=== PATIENT | female | born 1930 | race African-American/Black ===

== ENCOUNTER 2017-01-26 09:56 | Day surgery (SDC) | payer MEDICARE, MEDICAID ==
[~2017-01-26] VITALS: Ht 165.1 cm; Wt 67.1 kg
[~2017-01-26 09:56] MED LIST: AMIT75TA2 PO; CALC-700 PO; CELE200C PO; FERR-63 PO; FISH1CAP34 PO; FOLI-43 PO; GABA-529 PO; IBUP-2028 PO; METO-385 PO; OMEP20TA2 PO; SIMV40TA5 PO; TRAM50TA3 PO
[2017-01-26] MEDS ORDERED: LACTATED RINGERS 1,000 ML IV SCH (11:30)
[2017-01-26] MEDS ORDERED: CEFAZOLIN SODIUM 1000MG/VIAL ONE (11:55)
[2017-01-26] MEDS ORDERED: LIDOCAINE HCL 1% 20ML VIAL (Pyxis) INJ ONE (11:55)
[2017-01-26] MEDS ORDERED: PROPOFOL 200MG/20ML VIAL IV ONE (11:55)
[2017-01-26] MEDS ORDERED: ONDANSETRON HCL 4MG/2ML VIAL ONE (12:07)
[2017-01-26] MEDS ORDERED: GENTAMICIN SULF 40MG/ML 2ML VIAL ONE (12:10)
[2017-01-26] MEDS ORDERED: MORPHINE SULFATE 2 MG/ML CPJ (NOT FOR IM USE) IV PRN (12:30)
[2017-01-26] MEDS ORDERED: SODIUM CHLORIDE 0.9% 1,000 ML IV SCH (12:30)
[2017-01-26] MEDS ORDERED: ONDANSETRON HCL 4MG/2ML VIAL IV PRN (12:30)
== END 2017-01-26 14:15 | disposition home or self-care (01) ==
LOC: OR 09:56
PROVIDERS: ATTEND Urology
DX: N13.1 Hydronephrosis with ureteral stricture, not elsewhere classified (principal); K21.9 Gastro-esophageal reflux disease without esophagitis; I10 Essential (primary) hypertension; D64.9 Anemia, unspecified; E78.5 Hyperlipidemia, unspecified; I49.9 Cardiac arrhythmia, unspecified
CPT/HCPCS: 52332; 74000; 76000; 88300; C2617; J0690; J1580; J2405; J3490; J7120; J2704

== ENCOUNTER 2017-08-17 06:16 | Day surgery (SDC) | payer MEDICARE, MEDICAID ==
[~2017-08-17] VITALS: Ht 165.1 cm; Wt 66.7 kg
[2017-08-17] MEDS ORDERED: LACTATED RINGERS 1,000 ML IV SCH (06:30)
[2017-08-17] MEDS ORDERED: DEXAMETHASONE 4MG/ML 1ML VIAL ONE (07:34)
[2017-08-17] MEDS ORDERED: LIDOCAINE HCL/PF 1% 10 MG/ML 5ML VIAL ONE (07:34)
[2017-08-17] MEDS ORDERED: PROPOFOL 200MG/20ML VIAL IV ONE (07:34)
[2017-08-17] MEDS ORDERED: EPHEDRINE SULFATE 50MG/ML VIAL ONE (07:34)
[2017-08-17] MEDS ORDERED: ONDANSETRON HCL 4MG/2ML VIAL ONE (07:35)
[2017-08-17] MEDS ORDERED: SODIUM CHLORIDE 0.9% 10ML VIAL ONE ×3 (07:36→08:06)
[2017-08-17] MEDS ORDERED: CEFAZOLIN SODIUM 1000MG/VIAL ONE (07:54)
[2017-08-17] MEDS ORDERED: HYDRALAZINE 20MG/ML VIAL ONE (08:06)
[2017-08-17] MEDS ORDERED: DEXT 5%/0.45% NACL KCL 20MEQ/L 1,000 ML IV SCH (08:30)
== END 2017-08-17 10:50 | disposition home or self-care (01) ==
LOC: OR 06:16
PROVIDERS: ATTEND Urology
DX: N13.30 Unspecified hydronephrosis (principal); M17.9 Osteoarthritis of knee, unspecified; K21.9 Gastro-esophageal reflux disease without esophagitis; M19.049 Primary osteoarthritis, unspecified hand; I11.0 Hypertensive heart disease with heart failure; I50.9 Heart failure, unspecified; Z91.041 Radiographic dye allergy status; Z90.710 Acquired absence of both cervix and uterus
CPT/HCPCS: 52332; 74018; 88300; A4216; C2617; J0360; J0690; J1100; J2405; J3490; J7120; J2704

== ENCOUNTER 2018-11-28 15:57 | Inpatient (IN) | payer MEDICARE, MEDICAID ==
[~2018-11-28] VITALS: Ht 165.1 cm; Wt 62.6 kg
[2018-11-28 18:41] LABS: BASOPHILS % 0.7 % (0.0-2.0); EOSINOPHILS % 9.4 % (0.0-5.0); HEMATOCRIT. 29.7 % (36.0-48.0); HEMOGLOBIN. 9.8 g/dL (12.0-16.0); LYMPHOCYTES % 21.2 % (20.0-50.0); MEAN CORPUSCULAR HEMOGLOBIN 23.2 pg (28.0-32.0); MEAN CORPUSCULAR VOLUME 70.2 fL (81.0-99.0); MEAN PLATELET VOLUME 10.3 fl (7.4-10.4); NEUTROPHILS % 62.7 % (40.0-76.0); PLATELET 213 x1000/uL (130-400); RED BLOOD CELL COUNT 4.24 mill/uL (4.2-5.4); RED CELL DISTRIBUTION WIDTH 16.4 % (11.6-14.6)
[2018-11-28 18:45] LABS: CHLORIDE 109 mEq/L (98-107)
[2018-11-28] MEDS ORDERED: ACETAMINOPHEN 325MG TABLET PO ONE (19:15)
[2018-11-28 19:41] LABS: CLARITY URINE CLEAR (CLEAR); COLOR URINE YELLOW (YELLOW); KETONES URINE NEGATIVE (NEGATIVE); LEUKOCYTE ESTERASE URINE 3+ (NEGATIVE); NITRITE URINE POSITIVE (NEGATIVE); OCCULT BLOOD URINE 1+ (NEGATIVE); PH URINE 6.5 (4.5-8.0); PROTEIN URINE NEGATIVE (NEGATIVE); UROBILINOGEN URINE 0.2 E.U./dL (0.2-1.0)
[2018-11-28] MEDS ORDERED: SODIUM CHLORIDE 0.9% 1,000 ML IV ONE (19:50)
[2018-11-28] MEDS ORDERED: CEFTRIAXONE 1 G PREMIX 50 ML IV ONE (20:45)
[2018-11-29] MEDS ORDERED: IBUPROFEN 600MG TABLET PO PRN (07:15)
[2018-11-29] MEDS ORDERED: NON FORMULARY PATIENT HOME MED XX SCH (07:15)
[2018-11-29] MEDS: CEFTRIAXONE 1 G PREMIX 50 ML IV SCH (08:01)
[2018-11-29] MEDS: CYANOCOBALAMIN 1000MCG TABLET PO SCH (08:02)
[2018-11-29] MEDS: OMEPRAZOLE 20MG CAPSULE EXTENDED RELEASE PO SCH (08:02)
[2018-11-29 08:20] VITALS: BP 131/56
[2018-11-29] MEDS: METOPROLOL TARTRATE 100MG TABLET PO SCH ×2 (08:29→20:28)
[2018-11-29 12:12] VITALS: BP 158/66
[2018-11-29 15:51] VITALS: BP 154/62
[2018-11-29 20:00] VITALS: BP 149/58
[2018-11-29 20:10] LABS: T4 FREE 1.01 ng/dL (0.76-1.46)
[2018-11-29] MEDS: ATORVASTATIN CALCIUM 10MG TABLET PO SCH (20:27)
[2018-11-29] MEDS: AMITRIPTYLINE 25MG TABLET PO SCH (20:28)
[2018-11-29] MEDS ORDERED: AMITRIPTYLINE 50MG TABLET PO SCH (21:00)
[2018-11-30] VITALS: BP 152/71
[2018-11-30 04:00] VITALS: BP 162/58
[2018-11-30] MEDS: OMEPRAZOLE 20MG CAPSULE EXTENDED RELEASE PO SCH (06:22)
[2018-11-30 07:56] VITALS: BP 158/66
[2018-11-30] MEDS: CYANOCOBALAMIN 1000MCG TABLET PO SCH (08:32)
[2018-11-30] MEDS: CEFTRIAXONE 1 G PREMIX 50 ML IV SCH (08:32)
[2018-11-30] MEDS: METOPROLOL TARTRATE 100MG TABLET PO SCH ×2 (08:34→21:37)
[2018-11-30] MEDS: LEVOTHYROXINE SODIUM 50MCG TABLET PO SCH (10:28)
[2018-11-30] MEDS ORDERED: LEVOFLOXACIN 250MG TABLET PO SCH (11:00)
[2018-11-30 12:00] VITALS: BP 153/69
[2018-11-30 16:00] VITALS: BP 153/70
[2018-11-30 20:00] VITALS: BP 121/61
[2018-11-30] MEDS: AMITRIPTYLINE 25MG TABLET PO SCH (21:31)
[2018-11-30] MEDS: ATORVASTATIN CALCIUM 10MG TABLET PO SCH (21:31)
[2018-12-01] VITALS: BP 152/74
[2018-12-01 04:00] VITALS: BP 136/51
[2018-12-01 06:18] LABS: BASOPHILS % 0.4 % (0.0-2.0); HEMATOCRIT. 29.9 % (36.0-48.0); HEMOGLOBIN. 9.7 g/dL (12.0-16.0); LYMPHOCYTES % 21.7 % (20.0-50.0); MEAN CORPUSCULAR HEMOGLOBIN 22.9 pg (28.0-32.0); MEAN PLATELET VOLUME 9.7 fl (7.4-10.4); MONOCYTES % 7.1 % (2.0-8.0); NEUTROPHILS % 63.8 % (40.0-76.0); PLATELET 214 x1000/uL (130-400); RED BLOOD CELL COUNT 4.21 mill/uL (4.2-5.4)
[2018-12-01] MEDS: LEVOTHYROXINE SODIUM 50MCG TABLET PO SCH (06:32)
[2018-12-01] MEDS: OMEPRAZOLE 20MG CAPSULE EXTENDED RELEASE PO SCH (06:32)
[2018-12-01 06:47] LABS: CHLORIDE 110 mEq/L (98-107)
[2018-12-01] MEDS: METOPROLOL TARTRATE 100MG TABLET PO SCH (08:03)
[2018-12-01] MEDS: CEFTRIAXONE 1 G PREMIX 50 ML IV SCH (08:04)
[2018-12-01] MEDS: CYANOCOBALAMIN 1000MCG TABLET PO SCH (08:04)
[2018-12-01 08:17] VITALS: BP 147/67
[2018-12-01 09:34] VITALS: BP 139/56
[2018-12-01 12:00] VITALS: BP 128/52
[2018-12-01] MEDS ORDERED: HYDRALAZINE HCL 50MG TABLET PO SCH (14:00)
[2018-12-01] MEDS ORDERED: ATORVASTATIN CALCIUM 40MG TABLET PO SCH (21:00)
== END 2018-12-01 15:20 | disposition home health service (06) | DRG 690 ==
LOC: ER 18:28 → ENRESERV 11-29 03:51 → 6WST 11-29 05:29
PROVIDERS: ADMIT Internal Medicine; ATTEND Internal Medicine
DX: N39.0 Urinary tract infection, site not specified (principal); N20.0 Calculus of kidney; D64.9 Anemia, unspecified; E03.9 Hypothyroidism, unspecified; I12.9 Hypertensive chronic kidney disease with stage 1 through stage 4 chronic kidney disease, or unspecified chronic kidney disease; M50.30 Other cervical disc degeneration, unspecified cervical region; Z87.442 Personal history of urinary calculi; N18.9 Chronic kidney disease, unspecified; M17.10 Unilateral primary osteoarthritis, unspecified knee; G89.29 Other chronic pain; M54.5 Low back pain; Z87.440 Personal history of urinary (tract) infections; Z79.899 Other long term (current) drug therapy; Z91.041 Radiographic dye allergy status
CPT/HCPCS: 36415; 71101; 74018; 76770; 80048; 84439; 84443; 93923; 93970; 97162; 97535; 99285; J0696; J7030; J7040; J7050

== ENCOUNTER → 2018-12-19 | Outpatient (CLI) | payer MEDICARE, MEDICAID | END | disposition home or self-care (01) | LOC: US 08:28 | PROVIDERS: ATTEND Urology | DX: N20.0 Calculus of kidney (principal); N13.30 Unspecified hydronephrosis; K80.20 Calculus of gallbladder without cholecystitis without obstruction | CPT/HCPCS: 74018; 76700; 76856 ==

== ENCOUNTER 2019-01-29 06:06 | Day surgery (SDC) | payer MEDICARE, MEDICAID ==
[~2019-01-29] VITALS: Ht 163.8 cm; Wt 61.0 kg
[2019-01-29] MEDS ORDERED: LACTATED RINGERS 1,000 ML IV SCH (06:30)
[2019-01-29] MEDS ORDERED: IOPAMIDOL 20 ML VIAL IT ONE (07:08)
[2019-01-29] MEDS ORDERED: FENTANYL CITRATE/PF 50MCG/ML 2ML VIAL ONE (07:24)
[2019-01-29] MEDS ORDERED: MIDAZOLAM HCL 2 MG/2 ML VIAL ONE (07:24)
[2019-01-29] MEDS ORDERED: PROPOFOL 200MG/20ML VIAL IV ONE (07:24)
[2019-01-29] MEDS ORDERED: SODIUM CHLORIDE 0.9% 10ML VIAL ONE (07:47)
[2019-01-29] MEDS ORDERED: DEXAMETHASONE 4MG/ML 1ML VIAL ONE (07:47)
[2019-01-29] MEDS ORDERED: ONDANSETRON HCL 4MG/2ML INJ ONE (07:47)
[2019-01-29] MEDS ORDERED: GENTAMICIN SULF 40MG/ML 2ML VIAL ONE (07:47)
[2019-01-29] MEDS ORDERED: DEXT 5%/0.45% NACL KCL 20MEQ/L 1,000 ML IV SCH (07:52)
[2019-01-29] MEDS ORDERED: HYDROCODONE/ACETAMINOPHEN 5/325MG TABLET PO PRN (08:00)
[2019-01-29] MEDS ORDERED: NALOXONE HCL 0.4 MG/ML 1ML VIAL ONE (08:06)
[2019-01-29] MEDS ORDERED: ONDANSETRON HCL 4MG/2ML INJ IV PRN (08:15)
[2019-01-29] MEDS ORDERED: HYDROMORPHONE HCL/PF 2MG/ML CPJ IV PRN (08:15)
[2019-01-29] MEDS ORDERED: MEPERIDINE HCL/PF 25MG/ML CPJ IV PRN (08:15)
[2019-01-29] MEDS ORDERED: LABETALOL 5MG/ML SYR 20 MG/4 ML SYRINGE IV PRN (08:15)
[2019-01-29] MEDS ORDERED: METO100T16 PO (08:17)
[2019-01-29] MEDS ORDERED: DOCU250C19 PO (08:19)
[2019-01-29] MEDS ORDERED: ALBU6.7H9 IH (08:19)
== END 2019-01-29 11:05 | disposition home or self-care (01) ==
LOC: OR 06:06
PROVIDERS: ATTEND Urology
DX: N13.30 Unspecified hydronephrosis (principal); I21.9 Acute myocardial infarction, unspecified; Z88.8 Allergy status to other drugs, medicaments and biological substances; Z91.041 Radiographic dye allergy status; Z79.899 Other long term (current) drug therapy
CPT/HCPCS: 52332; 74430; 88300; C1769; C2617; J1100; J1580; J2250; J2310; J2405; J2704; J3010; 88305; Q9966

== ENCOUNTER 2019-07-30 06:23 | Day surgery (SDC) | payer MEDICARE, MEDICAID ==
[~2019-07-30] VITALS: Ht 162.6 cm; Wt 57.2 kg
[~2019-07-30 06:23] MED LIST changes: +ALBU6.7H9 IH; +DOCU250C19 PO; -METO-385 PO; +METO100T16 PO; -SIMV40TA5 PO
[2019-07-30] MEDS ORDERED: LACTATED RINGERS 1,000 ML IV SCH (06:55)
[2019-07-30] MEDS ORDERED: SODIUM CHLORIDE 0.9% 10ML VIAL ONE ×5 (07:15→08:22)
[2019-07-30] MEDS ORDERED: EPHEDRINE SULFATE 50MG/ML VIAL ONE (07:15)
[2019-07-30] MEDS ORDERED: PHENYLEPHRINE HCL 10 MG/ML 1ML (IV VIAL) IV ONE (07:16)
[2019-07-30] MEDS ORDERED: IOPAMIDOL 20 ML VIAL IT ONE (07:27)
[2019-07-30] MEDS ORDERED: MIDAZOLAM HCL 2 MG/2 ML VIAL ONE (07:30)
[2019-07-30] MEDS ORDERED: DEXAMETHASONE 4MG/ML 1ML VIAL ONE (07:30)
[2019-07-30] MEDS ORDERED: ONDANSETRON HCL 4MG/2ML INJ ONE (07:30)
[2019-07-30] MEDS ORDERED: FENTANYL CITRATE/PF 50MCG/ML 2ML VIAL ONE (07:30)
[2019-07-30] MEDS ORDERED: ROCURONIUM BROMIDE 10MG/ML VIAL 5ML IV ONE (07:31)
[2019-07-30] MEDS ORDERED: GLYCOPYRROLATE 0.2 MG/ML 2ML VIAL ONE (07:34)
[2019-07-30] MEDS ORDERED: CEFAZOLIN SODIUM 1000MG/VIAL ONE ×2 (07:43→07:44)
[2019-07-30] MEDS ORDERED: FLUMAZENIL 0.1 MG/ML 5ML VIAL IV ONE (08:12)
[2019-07-30] MEDS ORDERED: HYDRALAZINE 20MG/ML VIAL ONE (08:22)
== END 2019-07-30 10:50 | disposition home or self-care (01) ==
LOC: OR 06:23
PROVIDERS: ATTEND Urology
DX: N13.30 Unspecified hydronephrosis (principal); K21.9 Gastro-esophageal reflux disease without esophagitis; I11.0 Hypertensive heart disease with heart failure; I50.9 Heart failure, unspecified; E03.9 Hypothyroidism, unspecified; M17.9 Osteoarthritis of knee, unspecified; E78.00 Pure hypercholesterolemia, unspecified; D64.9 Anemia, unspecified; Z90.710 Acquired absence of both cervix and uterus; Z98.890 Other specified postprocedural states; Z79.899 Other long term (current) drug therapy; Z88.8 Allergy status to other drugs, medicaments and biological substances; Z91.041 Radiographic dye allergy status
CPT/HCPCS: 52332; 74018; 88300; C1769; C2617; J0360; J0690; J1100; J2250; J2370; J2405; J3010; J3490; Q9966

== ENCOUNTER → 2020-01-20 | Outpatient (CLI) | payer MEDICARE, MEDICAID ==
[~2020-01-20] MED LIST changes: -FOLI-43 PO; -GABA-529 PO; +LOVA40TA73 PO
== END | disposition home or self-care (01) ==
LOC: LAB 11:15
PROVIDERS: ATTEND Urology
DX: Z01.818 Encounter for other preprocedural examination (principal); Z11.59 Encounter for screening for other viral diseases
CPT/HCPCS: C9803; U0003

== ENCOUNTER → 2020-01-23 | Day surgery (SDC) | payer MEDICARE, MEDICAID ==
[~2020-01-23] VITALS: Ht 165.1 cm; Wt 54.4 kg
[~2020-01-23] MED LIST changes: -CALC-700 PO; +CEFAZOLIN SODIUM 1000MG/VIAL ONE; -CELE200C PO; +DEXAMETHASONE 4MG/ML 1ML VIAL ONE; +DEXT 5%/0.45% NACL KCL 20MEQ/L 1,000 ML IV SCH; +EPHEDRINE SULFATE 50MG/ML VIAL ONE; +ETOMIDATE 2MG/ML 10ML VIAL IV ONE; +FENTANYL CITRATE/PF 50MCG/ML 2ML VIAL ONE; -FISH1CAP34 PO; +GLYCOPYRROLATE 0.2 MG/ML 2ML VIAL ONE; +HYDRALAZINE 20MG/ML VIAL IV SCH; +HYDROMORPHONE HCL/PF 2MG/ML CPJ IV PRN; +LACTATED RINGERS 1,000 ML IV SCH; +LIDOCAINE HCL 2% JELLY 30ML ONE; +LIDOCAINE HCL/PF 1% 10 MG/ML 5ML VIAL ONE; +ONDANSETRON HCL 4MG/2ML INJ ONE; +PHENYLEPHRINE HCL 10 MG/ML 1ML (IV VIAL) IV ONE; +ROCURONIUM BROMIDE 10MG/ML VIAL 5ML IV ONE; +SODIUM CHLORIDE 0.9% 10ML VIAL ONE; -TRAM50TA3 PO
== END | disposition home or self-care (01) ==
LOC: OR 06:27
PROVIDERS: ATTEND Urology
DX: N13.30 Unspecified hydronephrosis (principal); K21.9 Gastro-esophageal reflux disease without esophagitis; I11.0 Hypertensive heart disease with heart failure; I50.9 Heart failure, unspecified; E78.00 Pure hypercholesterolemia, unspecified; M19.90 Unspecified osteoarthritis, unspecified site; E03.9 Hypothyroidism, unspecified; Z79.899 Other long term (current) drug therapy; Z98.890 Other specified postprocedural states; Z88.8 Allergy status to other drugs, medicaments and biological substances
CPT/HCPCS: 52332; 74021; 88300; C2617; J0360; J0690; J1100; J2370; J2405; J3010; J3490